=== PATIENT | female | born 1935 | race Caucasian/White ===

== ENCOUNTER 2021-07-26 01:26 | Emergency (ER) | payer MEDICARE, OTHER ==
[~2021-07-26] VITALS: Wt 91.0 kg
[2021-07-26] MEDS ORDERED: ATENOLOL25 MG PO (01:49)
[2021-07-26] MEDS ORDERED: HYDROCHLOROTH12.5 M2 PO (01:49)
[2021-07-26] MEDS ORDERED: FUROSEMIDE40 MG (01:49)
[2021-07-26] MEDS ORDERED: SERTRALINE HYD100 MG PO (01:50)
[2021-07-26] MEDS ORDERED: SIMVASTATIN40 M1 PO (01:50)
[2021-07-26] MEDS ORDERED: LOSARTAN POTASS50 M1 PO (01:50)
[2021-07-26] MEDS ORDERED: LEVOTHYROXINE100 MC1 PO (01:50)
[2021-07-26] MEDS ORDERED: POTASSIUM CHLO20 ME4 PO (01:50)
[2021-07-26] MEDS ORDERED: LATANOPROST 2.2.5 ML OU (01:51)
[2021-07-26] MEDS ORDERED: SOLIFENACIN SUC10 MG PO (01:51)
[2021-07-26 01:56] LABS: BASO # 0.03 (0.02-0.10); EOS # 0.15 (0.04-0.40); EOS % 2.3 % (1.0-5.0); HEMATOCRIT 42.7 % (37.0-47.0); HEMOGLOBIN 14.2 g/dL (12.5-16.0); LYMPH# 1.22 (1.50-4.00); MEAN CELL VOLUME 98 fl (78-100); MEAN CORPUSCULAR HEMOGLOBIN 33 pg (27-31); MEAN CORPUSCULAR HGB CONC 33 g/dL (33-37); MEAN PLATELET VOLUME 10.8 fl (7.4-10.4); MONO # 0.58 (0.20-0.80); NEU # 4.63 (1.40-6.50); PLATELET COUNT 143 K/mm3 (130-400); RED BLOOD COUNT 4.36 M/mm3 (4.10-5.30); RED CELL DISTRIBUTION WIDTH 12.4 % (11.5-14.5); WHITE BLOOD COUNT 6.6 K/mm3 (4.8-10.8)
[2021-07-26 02:05] LABS: ALBUMIN 4.2 g/dL (3.4-4.8)
[2021-07-26 02:06] LABS: POTASSIUM 3.5 mmol/L (3.5-5.1)
[2021-07-26 02:08] LABS: TOTAL PROTEIN 7.1 g/dL (6.2-8.1)
[2021-07-26 02:10] LABS: TOTAL BILIRUBIN 0.6 mg/dL (0.2-1.2)
[2021-07-26 02:35] LABS: PARTIAL THROMBOPLASTIN TIME 23.7 SECONDS (21.0-32.0); PROTHROMBIN TIME 10.4 SECONDS (9.0-12.0)
[2021-07-26 02:36] LABS: URINE APPEARANCE CLEAR; URINE BILIRUBIN NEGATIVE (NEGATIVE); URINE BLOOD NEGATIVE (NEGATIVE); URINE COLOR YELLOW; URINE GLUCOSE NEGATIVE (NEGATIVE); URINE KETONE NEGATIVE (NEGATIVE); URINE LEUKOCYTE ESTERASE NEGATIVE (NEGATIVE); URINE MUCUS PRESENT (NOT PRESENT); URINE NITRATE NEGATIVE (NEGATIVE); URINE PROTEIN(semi-quant) NEGATIVE (NEGATIVE); URINE UROBILINOGEN NORMAL (NORMAL); URINE WBC 0-1 /hpf (0-3)
[2021-07-26 05:28] VITALS: BP 139/67
== END 2021-07-26 05:31 | disposition short-term general hospital (02) ==
LOC: ED 01:26
PROVIDERS: Family Medicine
DX: S06.360A Traumatic hemorrhage of cerebrum, unspecified, without loss of consciousness, initial encounter (principal); I10 Essential (primary) hypertension; Z20.822 Contact with and (suspected) exposure to COVID-19; Z79.899 Other long term (current) drug therapy; W18.2XXA Fall in (into) shower or empty bathtub, initial encounter; Y93.E1 Activity, personal bathing and showering; Y92.091 Bathroom in other non-institutional residence as the place of occurrence of the external cause
CPT/HCPCS: J1953; J7050

== ENCOUNTER 2022-03-05 18:28 | Emergency (ER) | payer MEDICARE, OTHER ==
[~2022-03-05 18:28] MED LIST: ATENOLOL25 MG PO; FUROSEMIDE40 MG; HYDROCHLOROTH12.5 M2 PO; LATANOPROST 2.2.5 ML OU; LEVOTHYROXINE100 MC1 PO; LOSARTAN POTASS50 M1 PO; POTASSIUM CHLO20 ME4 PO; SERTRALINE HYD100 MG PO; SIMVASTATIN40 M1 PO; SOLIFENACIN SUC10 MG PO
[2022-03-05 21:02] VITALS: BP 114/69
== END 2022-03-05 21:02 | disposition home or self-care (01) ==
LOC: ED 18:28
DX: S31.010A Laceration without foreign body of lower back and pelvis without penetration into retroperitoneum, initial encounter (principal); E66.9 Obesity, unspecified; W17.89XA Other fall from one level to another, initial encounter